=== PATIENT | male | born 1950 | race Caucasian/White ===

== ENCOUNTER 2016-03-22 11:25 | Observation (INO) | payer MEDICARE ==
--- NOTE | ~2016-03-22 | EKG ---
PATIENT: DARLIN HENDRICKSON UNIT #: [id number] Ventricular Rate: 93 BPM Atrial Rate: 93 BPM P-R Interval: 148 ms QRS Duration: 108 ms Q-T Interval: 384 ms QTC Calculation(Bezet): 477 ms P [place]: 49 degrees Calculated R [place]: 29 degrees Calculated T [place]: -128 degrees Diagnosis Line: Sinus rhythm with occasional Premature ventricular Diagnosis Line: complexes Diagnosis Line: ST and T wave abnormality, consider inferior Diagnosis Line: ischemia Diagnosis Line: ST and T wave abnormality, consider anterolateral Diagnosis Line: ischemia Diagnosis Line: Prolonged QT Diagnosis Line: Abnormal ECG Diagnosis Line: No previous ECGs available Diagnosis Line[facility] Diagnosis Line: Confirmed by ANGIE FREDERICK MD ([id number]) on 03/22/2016 Diagnosis Line: 11:24:12 PM INTERPRETING MD: OTONIEL SANDERS
--- NOTE | ~2016-03-22 | CR72 ---
[facility] A Service of [facility] RADIOLOGY TEXT RESULTS PATIENT: DARLIN HENDRICKSON LOCATION: [facility] [id number] : 50 UNIT #: [id number] AGE: [address]: ISAAC ANAYA MD SEX: M ORDER DR: [id number] [facility] [address] [place], [place] [address] [id number] MR#: [id number] Acc #: [id number] NAME: DARLIN HENDRICKSON : 1950 SEX: M STUDY DATE/TIME: 03/22/2016 11:28 UNIT: [facility] ROOM: STUDY DESCRIPTION: CR Chest Single View Portable Attending Physician: Prema Wallis M.D. Ordering Physician: Prema Wallis M.D. Primary Care Physician: No Primary Care Physician MEDICAL IMAGING REPORT This report is preliminary unless electronic signature is present EXAM Portable chest, 03/22/2016. HISTORY Shortness of air beginning today. COMPARISON None FINDINGS Frontal chest demonstrates clear lungs. No pleural effusion or pneumothorax. Heart size and mediastinum are within normal limits. Pulmonary vasculature unremarkable. IMPRESSION No acute cardiopulmonary findings. Dictated by... Celso Pizarro M.D. THIS IS AN ELECTRONICALLY VERIFIED REPORT Celso Pizarro M.D. at 03/23/2016 5:57 AM NEW/venice TD: 03/22/2016 14:20 JOB #: [id number] MEDICAL IMAGING REPORT COPY
--- NOTE | ~2016-03-22 | CT71 ---
[facility] A Service of [facility] RADIOLOGY TEXT RESULTS PATIENT: DARLIN HENDRICKSON LOCATION: [facility] [address]-62 : [birth year] UNIT #: [id number] AGE: [address]: ISAAC LERMA MD SEX: M ORDER DR: [id number] [facility] [address] [place], [place] [address] [id number] I MR#: [id number] Acc #: [id number] NAME: DARLIN HENDRICKSON. : 1950 SEX: M STUDY DATE/TIME: 03/22/2016 13:05 UNIT: [facility] ROOM: 12937 STUDY DESCRIPTION: CT Head Wo Contrast Attending Physician: Isaac Lerma M.D. Ordering Physician: Prema Wallis M.D. Primary Care Physician: No Primary Care Physician MEDICAL IMAGING REPORT This report is preliminary unless electronic signature is present EXAM CT of head. DATE OF EXAM 03/22/2016 HISTORY Possible seizure. Question syncope. Forehead injury. Weakness, unresponsive, short of air x2 days. Question of dissection. TECHNIQUE CT head performed skull base through vertex without intravenous contrast. NOTE: This CT exam was performed with one or more of the following radiation dose reduction techniques: automatic exposure control, adjustment of mA and/or kV according to patient size, and iterative reconstruction. COMPARISON No prior CTs of head for comparison. FINDINGS No hemorrhage. No evidence of acute cortical ischemia. There are periventricular and deep white matter tract hypodensities bilaterally, most consistent with sequela of chronic microvascular ischemia. Midline structures are nondisplaced. No acute appearing basal ganglia abnormality. The ventricles, cisterns and sulci show mild generalized enlargement consistent with mild generalized atrophy. No intra or extraaxial mass effect or abnormal intracranial fluid collection. Cavernous carotid and distal vertebral arterial calcifications. Intraorbital soft tissues unremarkable. The visualized paranasal sinuses are clear. Opacification of multiple right mastoid air cells. Mastoid air fluid levels are seen. Findings suggest acute right mastoiditis. No underlying bony destructive process. Soft tissue swelling with some [facility] A Service of [facility] RADIOLOGY TEXT RESULTS PATIENT: DARLIN HENDRICKSON LOCATION[facility] [address] [id number] : [birth year] UNIT #: [id number] AGE: [address]: ISAAC LERMA MD SEX: M ORDER DR: subcutaneous haziness in the left paracentral parietal scalp near the vertex. Likely reflecting patient's reported possible seizure and possible syncope. Correlate with exam. No soft tissue defect, subcutaneous air or radiodense foreign body. IMPRESSION 1. No acute abnormality is seen in the brain. If the patient has ongoing neurologic symptoms or if this is a new onset of seizures in this patient, consider followup imaging, preferably with MRI, specifically, seizure protocol MRI. 2. Generalized atrophy. 3. Periventricular and deep white matter tract probable sequela of chronic microvascular ischemia. 4. Opacification of multiple right mastoid air cells with air fluid levels present suggesting acute right mastoiditis. 5. Soft tissue swelling in the posterior left paracentral parietal scalp near vertex, likely reflecting patient's reported possible seizure and syncope. Correlate with the exam. There is no soft tissue defect, subcutaneous air or radiodense foreign body. 6. No fracture. Dictated by... Aydin De La Garza M.D. THIS IS AN ELECTRONICALLY VERIFIED REPORT Aydin De La Garza M.D. at 03/23/2016 8:58 PM Mami TD: 03/22/2016 15:37 JOB #: [id number] MEDICAL IMAGING REPORT COPY
--- NOTE | ~2016-03-22 | CT14 ---
[facility] A Service of [facility] RADIOLOGY TEXT RESULTS PATIENT: DARLIN HENDRICKSON LOCATION: [facility] [address]-29 : 50 UNIT #: [id number] AGE: [address]: ISAAC LERMA MD SEX: M ORDER DR: [id number] [facility] [address] [place], [place] [address] [id number] I MR#: [id number] Acc #: [id number] NAME: DARLIN HENDRICKSON. : 1950 SEX: M STUDY DATE/TIME: 03/22/2016 13:08 UNIT: [facility] ROOM: 01026 STUDY DESCRIPTION: CT Angio Abdomen and Pelvis Attending Physician: Isaac Lerma M.D. Ordering Physician: Prema Wallis M.D. Primary Care Physician: No Primary Care Physician MEDICAL IMAGING REPORT This report is preliminary unless electronic signature is present EXAM CT angiography of chest, abdomen, and pelvis 03/22/2016. HISTORY Code Aorta. Possible seizures, syncope, forehead injury, weakness, unresponsiveness, short of air 2 days. Question dissection. TECHNIQUE CT chest, abdomen, and pelvis angiography performed with intravenous administration of 80 mL of Isovue-370. 3-dimensional reconstructions performed through the aorta. This CT exam was performed with one or more of the following radiation dose reduction techniques: automatic exposure control, adjustment of mA and/or kV according to patient size, and iterative reconstruction. COMPARISON STUDIES No comparisons. FINDINGS Thyroid unremarkable. No axillary adenopathy. Bilateral symmetric gynecomastia. There is mediastinal adenopathy. Right paratracheal node measuring 1.4 cm in short axis. Nodes adjacent to the aortic arch measuring 1 cm in short axis. The heart is normal to upper limits of normal in size. Large bilateral pleural effusions. Pulmonary parenchyma shows underlying centrilobular emphysema. Mild bronchial wall prominence. No definite bronchiectasis. Mild linear interstitial prominence in lung apices and in the periphery of the lungs bilaterally. Some of this may reflect chronic change. A degree of interstitial edema could be considered. Dependent atelectasis bilateral lower lobes adjacent to the effusions. Greater on the right than left. No suspicious nodule. CT ABDOMEN: Liver unremarkable. Uncomplicated cholelithiasis. There is some subtle motion artifact at the level of the gallbladder. There is no STS. [facility] A Service of [facility] RADIOLOGY TEXT RESULTS PATIENT: DARLIN HENDRICKSON LOCATION: [facility] [address]-40 : 50 UNIT #: [id number] AGE: [address]: ISAAC LERMA MD SEX: M ORDER DR: clear indication of gallbladder wall thickening or pericholecystic fluid/inflammatory change. No ductal dilatation. Spleen, pancreas, and adrenal glands are unremarkable. 1.5-cm right upper pole renal cyst. 1.3-cm left upper to mid renal cyst. Kidneys otherwise unremarkable. CT PELVIS: No inguinal adenopathy. Urinary bladder mildly distended. Probably physiologic in nature. No focal mural abnormality or perivesical inflammatory change is seen. No pelvic fluid collection. No pelvic or retroperitoneal adenopathy. Distal esophagus, stomach, small bowel, appendix, and colon notable for xzpovlih-fr-neblw stool burden in the rectum without evidence of obstruction. Rectum measures up to 6.3 cm in diameter. This is probably physiologic in nature. Correlate with any clinical signs or symptoms of impaction or constipation. There is mild body wall edema more pronounced in the low abdomen and pelvis. This examination was not tailored for assessment of the pulmonary arteries, but the pulmonary arteries are well opacified, and there is no indication of pulmonary embolism. Not mentioned above, there is a 1.5 cm x 7-8 mm nodule in the anteromedial left upper lobe image 41. It is possible this is an area of atelectasis. Consider assessment with PET/CT scan after resolution of the patient's acute presentation. Comparison with prior studies would be useful. The aorta is normal in caliber with no indication of aortic dissection. Great vessel origins are patent with flow seen in bilateral vertebral and proximal common carotid arteries. Celiac axis and superior mesenteric arteries are patent. Single renal arteries bilaterally. Moderate atherosclerotic disease in the bilateral proximal renal arteries. Luminal narrowing on the right up to about 34% and on the left up to about 51%. Best further evaluated, if felt clinically warranted, with standard catheter angiography. The inferior mesenteric artery is patent. The abdominal aorta is normal in caliber. Bilateral common iliac arteries are patent. Mildly ectatic right common iliac artery measuring about 13 mm in diameter. Metn-zi-wrnkkoph atherosclerotic disease without evidence of flow-limiting stenosis in the right common iliac artery. There may be up to about 54% luminal narrowing due to atherosclerotic plaque in the distal left common iliac artery. The internal and external iliac arteries are patent, and the proximal femoral vessels are unremarkable. The bony structures show no acute abnormality. IMPRESSION 1. No aortic aneurysm or dissection. The visualized aortic branch vessels are patent. Note made of moderate atherosclerotic luminal narrowing in the bilateral renal arteries and potentially significant luminal narrowing in the left distal common iliac artery. See discussion in body of report. 2. Study not tailored for assessment of pulmonary arteries but the pulmonary arteries are well opacified and there is no indication of pulmonary thromboembolic disease. [facility]. [facility] A Service of [facility] RADIOLOGY TEXT RESULTS PATIENT: DARLIN HENDRICKSON LOCATION: [facility] [address]45 : [birth year] UNIT #: [id number] AGE: [address]: ISAAC LERMA MD SEX: M ORDER DR: 3. Mild underlying emphysema. Bronchial wall thickening, as well. Findings may reflect components of COPD with chronic bronchitis. There is mild interstitial prominence at the lung apices and in the periphery of the lungs. This could be a reflection of chronic change and/or mild interstitial edema. There are large bilateral pleural effusions, with significant underlying atelectasis in the bilateral lower lobes, right greater than left. 4. Possible 1.5-cm x 7-8 mm nodule anteromedial left upper lobe image 41. Reassessment, possibly with PET/CT scan, after resolution of patient's acute presentation recommended. It is possible this may be an area of atelectasis or scarring. 5. Mediastinal adenopathy. Favored to be benign/reactive in nature. See medical device sales representative locations and sizes in body of report. Attention at followup recommended. 6. Uncomplicated cholelithiasis. 7. Bilateral renal cysts. 8. The alimentary canal notable only for ozntyhzk-pl-hgvuz stool burden in rectum with rectum measuring up to about 6.3 cm in diameter. Probably physiologic in nature. No proximal dilatation. Correlate with any clinical signs or symptoms of constipation or impaction. 9. Mild body wall edema more pronounced in the abdomen and pelvis. 10. Bilateral gynecomastia. Correlate with risk factors. 11. Please see remainder of incidental findings in body of report above. Dictated by... Aydin De La Garza M.D. THIS IS AN ELECTRONICALLY VERIFIED REPORT Aydin De La Garza M.D. at 03/23/2016 8:58 PM NILSA/karson TD: 03/22/2016 16:32 JOB #: [id number] MEDICAL IMAGING REPORT COPY
--- NOTE | ~2016-03-22 | CO ---
Unit #: [id number] #: [id number] Patient: DARLIN HENDRICKSON [id number] [facility]. [place], [place] [address] [id number] I MR#: [id number] NAME: DARLIN HENDRICKSON. ROOM: 13209 Age: 65 Sex: M Admission Date: 03/22/2016 : 1950 Attending Physician: Joseph Lerma M.D. CONSULTATION REPORT J HISTORY OF PRESENT ILLNESS This is a 65-year-old white male, previously known to Cardiology at the [facility]. The patient had a normal treadmill stress test on 09/14/2012 according to the documentation. 2D echocardiogram was obtained on 01/15/2012, which revealed moderate global hypokinesis of the left ventricle. There were inferior ischemic wall changes. The patient had severe posterior hypokinesis. Ejection fraction was low at 39%. He also has a history of coronary artery disease with multiple myocardial infarctions, underwent PCI and stents x2 approximately 10 years ago in 2004. Records have been requested, but are pending. He is known to have diabetes mellitus type 2, peripheral neuropathy, chronic lower extremity wounds, chronic congestive heart failure, probable COPD, and active tobacco abuse. 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 According to the family, he is very difficult to get along with at home. He is noncompliant and has not been admitted to the hospital in approximately 10 years. He presented to the emergency department with complaints of a syncopal episode. The patient is aggressive during exam and is not forthcoming with information. According to his , he has not been feeling well. He has been laying around, sleeping a lot. He complained of nausea. He went up to go to the bathroom and the heard a "thump." She came into the bathroom. The patient was on the floor and was unresponsive. It appeared that he was not breathing. The family administered brief CPR and the patient regained consciousness and respirations. The episode lasted for a couple of minutes. EMS was dispatched. There are no reports of precipitating chest pain. It is unclear if he had any dizziness, palpitations, or dyspnea. He has had no previous episodes of syncope. Risk factors for ischemic heart disease include diabetes, with continued active tobacco abuse. In the emergency department, his temperature was 98.6, pulse 93, respirations 16, blood pressure 140/83. EKG revealed sinus rhythm with an intraventricular conduction delay. There was T-wave inversion noted in the inferior and anterolateral leads. PVC was noted. QTc was [address] of the head was ordered and revealed no hemorrhage. Final report is pending. CTA of the abdomen and pelvis and chest were ordered and also remain pending. Initial cardiac enzymes were elevated with a troponin of 0.23. Sodium was 131. Creatinine was 1.4 with a BUN of 23. Glucose is 258. BNP was 533. Chest x-ray revealed no acute findings. He was admitted for further observation. Cardiology was consulted. The patient is adamant for discharge and has been noncompliant since his arrival. The importance of hospital admission has been discussed with him and his . Unit #: [id number] #: [id number] Patient: DARLIN HENDRICKSON He would be at high risk for adverse event if he left against medical advice. PAST MEDICAL HISTORY 1. Normal treadmill stress test on 2012. 2. A 2D echocardiogram on 01/15/2012 revealed moderate global hypokinesis of left ventricle, inferior ischemic wall changes, severe posterior hypokinesis, left ventricular ejection fraction of 39%, trace mitral and aortic regurgitation. 3. Coronary artery disease with multiple myocardial infarctions, status post PCI and stents x2 approximately 10 years ago at the [facility] in 2004. Records pending. 4. Diabetes mellitus type 2. 5. Peripheral neuropathy. 6. Chronic lower extremity wound. 7. Chronic systolic congestive heart failure. 8. Probable COPD. 9. Active tobacco abuse. PAST SURGICAL HISTORY Cardiac catheterization with PCI and stents. HOME MEDICATIONS Include Bumex, Lantus, NovoLog, Lyrica, and Cymbalta. Doses are unavailable and will need to be reviewed. ALLERGIES No known drug allergies. SOCIAL HISTORY The patient lives in a private residence. He is sedentary. He is an active smoker and smokes up to one pack of cigarettes per day. There are no reports of alcohol or illicit drug use per family reports. REVIEW OF SYSTEMS A 10-point review of systems negative except for details noted above in HPI. Details were difficult to obtain. FAMILY HISTORY Difficult to obtain. PHYSICAL EXAMINATION VITAL SIGNS: Temperature 98.7, pulse 90, blood pressure 124/75. CONSTITUTIONAL: This is a 65-year-old white male, who is in no acute distress. SKIN: Warm and dry. NECK: Supple. No jugular vein distention. No hepatojugular reflux. Normal carotid upstrokes. No carotid bruits auscultated. HEART: S1 and S2. Regular rate and rhythm. No murmurs, rubs, or gallops. LUNGS: Bilateral breath sounds have scattered wheezes throughout. Respirations are even and nonlabored. No rales or rhonchi. ABDOMEN: Soft, nontender, and nondistended. Positive bowel sounds auscultated x4 quadrants. No ascites noted. EXTREMITIES: Bilateral lower extremities have no trace pretibial pitting edema. DP and PT pulses are 1+. Capillary refill is less than 2 seconds. DIAGNOSTIC STUDIES Unit #: [id number] #: [id number] Patient: DARLIN HENDRICKSON LABORATORY RESULTS: White blood cell count 10, hemoglobin 10, hematocrit 29.8, platelets 377. Sodium 131, potassium 4.5, chloride 94, CO2 of 27, BUN 23, creatinine 1.4, glucose 258, calcium 8.3. BNP 533. Ammonia 24. Alcohol level less than 5. PT 11.7, INR 1.1. D-dimer 815. Troponin 0.23. IMAGING STUDIES: Chest x-ray reveals no acute findings. CT of the head revealed no hemorrhage. Final report pending. CTA of the abdomen and pelvis and chest pending. CARDIOVASCULAR STUDIES: Electrocardiogram reveals sinus rhythm with a ventricular rate of 93 beats per minute. PVC. T-wave inversion noted in the inferior and anterolateral leads. QTc 477 msec. IMPRESSION 1. Syncope. 2. Acute coronary syndrome. 3. Acute on chronic systolic congestive heart failure. 4. Previous left ventricular ejection fraction of 39% in 01/2012. 5. Coronary artery disease with history of multiple myocardial infarctions, status post PCI and stent approximately 10 years ago in 2004. Records pending from the [facility]. 6. Acute exacerbation of chronic obstructive pulmonary disease. 7. Elevated D-dimer. CTA of the chest pending. 8. Diabetes mellitus type 2. 9. Peripheral neuropathy. 10. Chronic lower extremity wound. 11. Active tobacco abuse. 12. Noncompliance. PLAN 1. The patient was in the hospital with a syncopal episode. Cardiology was consulted for further management. 2. The patient denies chest pain. Initial cardiac enzymes are elevated with a troponin of 0.23. EKG is abnormal. 3. Cardiac enzymes and EKG will be trended. 4. The patient will be started on aspirin, full-dose Lovenox, and carvedilol. 5. He will be diuresed with IV Lasix. 6. A 2D echocardiogram will be ordered to assess LV function and valves. 7. TSH, fasting lipid profile, and repeat labs will be obtained. 8. The patient is insisting on leaving against medical advice. If he wants to leave, he has to sign AMA. He has been strongly encouraged to stay in the hospital for further evaluation. 9. Records from the [facility] have been requested and are pending. 10. The patient has been educated to refrain from tobacco abuse. Dictated by... VERNON Frausto/cierra TD: 03/22/2016 16:36 JOB #: [id number] CC: [facility] Unit #: [id number] #: [id number] Patient: DARLIN HENDRICKSON CONSULTATION REPORT X X CONSULTATION REPORT
[2016-03-22 11:38] LABS: BASOPHIL# 0.1 X10e3 (0-0.3); BASOPHIL% 1.1 % (0-2.5); EOSINOPHIL% 0.1 % (0.0-7.0); HEMATOCRIT 29.8 % (38.0-50.0); LYMPHOCYTE# 0.9 X10e3 (1.0-3.5); LYMPHOCYTE% 8.7 % (17.0-45.0); MEAN CORPUSCULAR HEMOGLOBIN 40.7 PG (28-34); MEAN CORPUSCULAR HGB CONC 33.6 g/dL (30-36); MEAN PLATELET VOLUME 7.9 FL (6.5-11.5); MONOCYTE# 2.2 X10e3 (0-1.0); MONOCYTE% 22.4 % (3.0-12.0); NEUTROPHIL# 6.8 X10e3 (1.5-7.1); NEUTROPHIL% 67.7 % (40-75); PLATELET COUNT 377 X10e3 (140-420); RED BLOOD COUNT 2.47 X10e (3.90-5.60); RED CELL DISTRIBUTION WIDTH 15.8 % (11.0-15.5)
[2016-03-22 11:39] LABS: POC - CKMB 7.5 ng/mL (0.0-7.9); POC - TROPONIN 0.23 ng/mL (<=0.05)
[2016-03-22 11:39] LABS: INR 1.1; PROTHROMBIN TIME (PATIENT) 11.7 SECONDS (9.6-11.5)
[2016-03-22 11:39] LABS: DIFF IND YES
[2016-03-22 11:44] LABS: ANISOCYTOSIS SL; PLATELET ESTIMATE NORMAL (NORMAL); POIKILOCYTOSIS SL
[2016-03-22 11:50] LABS: BLOOD UREA NITROGEN 23 mg/dL (9-23); BUN/CREATININE RATIO 16.42; CALCIUM SERUM 8.3 mg/dL (8.4-10.2); CARBON DIOXIDE 27 mmol/L (22-31); CHLORIDE 94 mmol/L (100-111); CREATININE SERUM 1.4 mg/dL (0.6-1.4); GLOM FILT RATE Estimated 54.1 mL/min (>60); GLUCOSE FASTING 258 mg/dL (70-110); POTASSIUM 4.5 mmol/L (3.5-5.1); SODIUM 131 mmol/L (135-145)
[2016-03-22 11:51] LABS: ALCOHOL BLOOD <5 mg/dL ([, 0])
[2016-03-22] MEDS ORDERED: LANTUS100 U/ML SUBQ (13:21)
[2016-03-22] MEDS ORDERED: BUMEX1 MG PO (13:21)
[2016-03-22] MEDS ORDERED: NOVOLOG100 U/M2 SUBQ (13:22)
[2016-03-22] MEDS ORDERED: DULOXETINE HCL60 MG PO (13:22)
[2016-03-22] MEDS ORDERED: LYRICA75 MG PO (13:22)
[2016-03-22] MEDS ORDERED: OMEPRAZOLE20 M1 PO (13:22)
[2016-03-22 14:23] LABS: POC - CKMB 13.4 ng/mL (0.0-7.9); POC - TROPONIN 0.47 ng/mL (<=0.05)
[2016-03-22 17:23] LABS: AMPHETAMINE NEG (NEG); BARBITURATES NEG (NEG); BENZODIAZEPINES NEG (NEG); COCAINE NEG (NEG); MARIJUANA NEG (NEG); OPIATES NEG (NEG); TRICYCLIC ANTIDEPRESSANTS NEG (NEG); U METHADONE NEG (NEG)
== END 2016-03-22 18:35 | disposition left against medical advice (07) ==
LOC: CED 11:25 → CEDOF 14:55
PROVIDERS: Emergency Medicine
DX: R55 Syncope and collapse (principal); I24.9 Acute ischemic heart disease, unspecified; I50.23 Acute on chronic systolic (congestive) heart failure; I25.10 Atherosclerotic heart disease of native coronary artery without angina pectoris; I25.2 Old myocardial infarction; Z95.5 Presence of coronary angioplasty implant and graft; J44.1 Chronic obstructive pulmonary disease with (acute) exacerbation; E11.42 Type 2 diabetes mellitus with diabetic polyneuropathy; Z79.4 Long term (current) use of insulin; R79.89 Other specified abnormal findings of blood chemistry; F17.210 Nicotine dependence, cigarettes, uncomplicated; Z79.899 Other long term (current) drug therapy; Z91.19 Patient's noncompliance with other medical treatment and regimen
CPT/HCPCS: 36415; 70450; 71010; 71275; 74174; 80048; 80307; 82140; 82553; 82947; 83880; 84484; 85025; 85379; 85610; 93005; 94640; 96372; 96374; 96375; 99285; G0378; G0480; J1650; J1815; J1940; J2930; Q9967